=== PATIENT | female | born 1940 | race Caucasian/White ===

== ENCOUNTER 2017-12-25 19:12 | Observation (INO) | payer OTHER ==
[~2017-12-25] VITALS: Ht 154.9 cm; Wt 72.6 kg
--- NOTE | ~2017-12-25 | 2DMMODE ---
[facility] [place] [address] 2 D/M-MODE ECHOCARDIOGRAM Name: LAKESILVIONATHALIE Albert Room #: 215-P [facility]#: [id number] Admission: 12/25/17 Attend Phys: Jamey Templeton MD Discharge: Date of : 36 Date of Service: 12/26/17 1606 Report #: [id number] THIS REPORT FOR: //name// APPROVED REPORT Study performed: 12/26/2017 12:15:55 EXAM: Comprehensive 2D, Doppler, and color-flow Echocardiogram Patient Location: In-Patient Room #: 215 Status: routine BSA: 1.72 HR: 60 bpm BP: 148/69 mmHg Other Information Study Quality: Adequate Indications CVA/TIA Hypertension/HDD Echo Enhancing Agent Indication: Rule out Shunt Agent(s) / Amount(s) Used: Agitated Saline 6 cc 2D Dimensions RVDd: 28.58 mm IVSd: 12.19 (7-11mm) LVOT Diam: 18.86 (18-24mm) LVDd: 39.69 mm PWd: 10.52 (7-11mm) Ascending Ao: 30.05 (22-36mm) LVDs: 26.13 (25-40mm) Aortic Root: 32.75 mm IVC: 14.00 mm Volumes Left Atrial Volume (Systole) Single Plane 4CH: 26.21 mL Single Plane 2CH: 27.95 mL LA ESV Index: 17.00 mL/m2 Aortic Valve AoV Peak Adan.: 1.20 m/s AO Peak Gr.: 5.71 mmHg LVOT Max P.45 mmHg LVOT Max V: 0.93 m/s MARGARITA Vmax: 2.17 cm2 [facility] [place] [address] [place] [address] 2 D/M-MODE ECHOCARDIOGRAM Name: LAUREN BETHEA Roosevelt Room #: 215-P [facility].#: [id number] Admission: 12/25/17 Attend Phys: Jamey Templeton MD Discharge: Date of : 36 Date of Service: 12/26/17 1606 Report #: [id number] Mitral Valve E/A Ratio: 0.6 MV Decel. Time: 253.73 ms MV E Max Adan.: 0.66 m/s MV A Adan.: 1.05 m/s MV PHT: 73.58 ms IVRT: 128.03 ms Pulmonary Valve PV Peak Adan.: 0.66 m/s PV Peak Gr.: 1.75 mmHg Pulmonary Vein P Vein S: 0.67 m/s P Vein A: 0.26 m/s P Vein D: 0.45 m/s P Vein A Dur.: 110.7 msec P Vein S/D Ratio: 1.49 Tricuspid Valve TR Peak Adan.: 3.22 m/s RAP Estimate: 5.00 mmHg TR Peak Gr.: 41.47 mmHg PA Pressure: 46.00 mmHg Left Ventricle The left ventricle is normal size. There is normal left ventricular wall thickness. The left ventricular systolic function is normal. The left ventricular ejection fraction is within the normal range. LVEF is 60-65%. Mild diastolic dysfunction is present (impaired relaxation pattern). Right Ventricle The right ventricle is normal size. The right ventricular systolic function is normal. Atria The left atrium size is normal. No shunting by contrast bubble injection. The right atrium size is normal. Aortic Valve The aortic valve is normal in structure. No aortic regurgitation is present. There is no aortic valvular stenosis. Mitral Valve The mitral valve is normal in structure. Trace mitral regurgitation. No evidence of mitral valve stenosis. Tricuspid Valve The tricuspid valve is normal in structure. Trace to mild tricuspid [facility] [address] [place] [address] 2 D/M-MODE ECHOCARDIOGRAM Name: LAUREN BETHEA Room #: 215-P [facility]#: [id number] Admission: 12/25/17 Attend Phys: Jamey Templeton MD Discharge: Date of : 36 Date of Service: 12/26/17 1606 Report #: [id number] regurgitation. PAP is estimated at 46 mmHg. Pulmonic Valve The pulmonary valve is normal in structure. Mild pulmonic regurgitation. Great Vessels The aortic root is normal in size. IVC is normal in size and collapses >50% with inspiration. Pericardium There is no pericardial effusion. <Conclusion> The left ventricle is normal size. LVEF is 60-65%. Mild diastolic dysfunction is present (impaired relaxation pattern). The right ventricle is normal size. The left atrium size is normal. The aortic valve is normal in structure. Trace mitral regurgitation. Trace to mild tricuspid regurgitation. PAP is estimated at 46 mmHg. Mild pulmonic regurgitation. The aortic root is normal in size. There is no pericardial effusion. <ELECTRONICALLY SIGNED> By: Tate Sahni MD, FACC 12/26/17 1606 1606 1606 Tate Sahni MD, FACC /INF
--- NOTE | ~2017-12-25 | HC ---
[facility] [place] [address] CONSULTATION Name: LAUREN BETHEA Room #: 215-P [facility] Judith Strange#: [id number] Admission: 12/25/17 Attend Phys: Jamey Templeton MD Discharge: 12/26/17 Date of : 36 Report #: [id number] THIS REPORT FOR: //name// CC: Berenice Templeton NO PCP Lobo Weldon DATE OF SERVICE: 12/26/2017 HISTORY OF PRESENT ILLNESS: The patient is a 77-year-old woman who was admitted to the hospital on 12/25/2017. The patient had a chief complaint of left arm, left face and left tongue tingling, which had begun abruptly. The patient states that she had finished eating and she noticed tingling with paroxysmal, electric-like pain intermittently on the left side. She has no history of trigeminal neuralgia. She noticed no shortness of breath or sweating. No nausea or vomiting. The symptoms did tend to get better, but she is still having some burning pain in her left foot, which was not involved with the paroxysmal electric-like pain elsewhere. The patient is feeling well now. She underwent imaging, and the MRI of the head reportedly showed a small linear focus of increased diffusion signal in the right mid to inferior cerebellar hemisphere consistent with "small acute infarct." MRA was unremarkable. Head CT scan without contrast showed a possible chronic lacunar infarct within the right basal ganglia, which was not seen on MRI. Chest x-ray was unremarkable. The patient is feeling well now. PAST MEDICAL HISTORY: Positive for type 2 diabetes, hypertension, hyperlipidemia, hypothyroidism, GERD, osteoarthritis, diverticulosis and appendectomy. HOME MEDICATIONS: Include simvastatin, Symbicort, Diovan HCT, levothyroxine 50 mcg, trazodone 50 mg nightly, metformin and vitamin supplements. ALLERGIES: No known drug allergies. FAMILY HISTORY: Positive for heart disease and stroke. SOCIAL HISTORY: She has never smoked, and drinks wine occasionally. REVIEW OF SYSTEMS: The patient denies systemic complaints of fever, rash or chills. The patient had headaches in the past, but has not had for years. She has not had any neck pain or problems with shooting pains into her arms or legs of a radicular nature. The 10-point review of systems is otherwise [address] [address] CONSULTATION Name: LAUREN BETHEA Room #: 215-[facility] Judith Strange#: [id number] Admission: 12/25/17 Attend Phys: Jamey Templeton MD Discharge: 12/26/17 Date of : 36 Report #: [id number] unremarkable. PHYSICAL EXAMINATION: VITAL SIGNS: Blood pressure 153/75, pulse 61, temperature 36.9. GENERAL APPEARANCE: The patient is an older woman who appears her stated age and is in no apparent distress and is very pleasant. NECK: Supple. EXTREMITIES: No pedal edema was noted. NEUROLOGIC: She is alert and oriented with normal memory and speech. Cranial nerve testing reveals small, but equal pupils. Extraocular movements were full. Visual pal were full to confrontation. Facial sensation and facial mobility were normal. Hearing was intact bilaterally. Tongue was normal. Motor testing revealed full power in her arms and legs. There was no drift or involuntary movements. Sensation testing was intact to pin and vibration sense throughout. Coordination testing was done well with [id number], [id number] and rapid alternating movements. Reflexes were 2+ and equal from side to side. Gait was not tested. LABORATORY STUDIES: Showed an elevated white count of 14,600, the sed rate was 5. Chemistry showed a glucose of 97, triglycerides 157, total cholesterol 175, HDL 66, LDL 78. Magnesium was 1.7. Liver function tests were normal. TSH was 0.730, free T4 at 1.1. IMPRESSION: The patient's symptoms suggest a paroxysmal neuralgia with electric-like pain occurring superimposed on symptoms of paresthesias like numbness and tingling. This has resolved. This paroxysmal neuralgia, when it occurs in the trigeminal distribution, is treated with Tegretol; however, diabetes can present with this kind of paroxysmal pain, which may not recur or, which recur so rarely that it would not be recommended that she take Tegretol on a continuous basis. I have requested a B12 level. Her white count was elevated, but this could be due to the steroid effect, which she had been taking recently. Paroxysmal shooting pains can rarely be seen in neurosyphilis. She has no history of sexually transmitted diseases, but an RPR will be ordered, to cover the water form. I disagree with the impression of a stroke. It does not fit clinically at all and I believe the imaging is most likely an artifact. <ELECTRONICALLY SIGNED> By: Jay Colon MD 12/29/17 1526 1533 00 Jay Colon MD /nt
--- NOTE | ~2017-12-25 | H ---
[facility] [place] [address] HISTORY AND PHYSICAL Name: LAUREN BETHEA Room #: 215-P [facility] M.R.#: [id number] Admission: 12/25/17 Attend Phys: Jamey Templeton MD Discharge: Date of : 38 Report #: [id number] THIS REPORT FOR: //name// CC: Tate Sahni MD [facility] Berenice Templeton NO PCP Lobo Weldon DATE OF SERVICE: 12/25/2017 CHIEF COMPLAINT: Left-sided numbness and tingling. HISTORY OF PRESENT ILLNESS: The patient is a 77-year-old [place]ian female who had dinner last evening and felt fairly normal and about an hour later while seated and watching television with her , began complaining of having strange feelings involving her eyesight and tingling from her chest going down her left arm and then further extending to her left face and her left lower extremity. No shortness of breath, no diaphoresis, no nausea or vomiting. The symptoms lasted less than 45 minutes and were over shortly after she arrived at the Emergency Room and have not recurred overnight during her hospital stay thus far. She feels normal this morning. I interviewed her and her at length. He drove her to the Emergency Room where she had the initial workup and she was admitted for further evaluation and treatment. PAST MEDICAL HISTORY: Includes type 2 diabetes, hypertension, hyperlipidemia, hypothyroidism, gastroesophageal reflux disease, osteoarthritis in the hands, diverticulosis, and appendectomy. She was just finishing a course of antibiotics and steroids and oral inhaler for treatment of acute bronchitis that she developed during a recent trip to the [facility]. HOME MEDICATIONS: List includes simvastatin 40 mg by mouth daily, calcium carbonate with vitamin D3 three tablets by mouth every day at lunch, vitamin D3 1000 units by mouth daily, Symbicort 160/4.5 two puffs per inhaler twice daily, Diovan HCT 320/25 one tab by mouth every morning, levothyroxine 50 mcg by mouth daily, trazodone 50 mg by mouth nightly, metformin 500 mg by mouth twice daily with meals and a multivitamin with iron and minerals daily. ALLERGIES: She has no known drug allergies. FAMILY HISTORY: Her mother had myocardial infarction and her father had a stroke during their lives. There is also significant history of anxiety in her father and in an aunt. SOCIAL HISTORY: The patient is to Dr. Kamilla Bethea. She is a lifelong nonsmoker and has no vices. She has 3 grown children and 2 [address] [address] HISTORY AND PHYSICAL Name: SILVIO BETHEANATHALIE Roosevelt Room #: 215-[facility]#: [id number] Admission: 12/25/17 Attend Phys: Jamey Templeton MD Discharge: Date of : 38 Report #: [id number] REVIEW OF SYSTEMS: There is no headache. There is no vertigo. There is no change in hearing. No changes in sense of smell or taste. There is no difficulty with swallowing. There are no falls or trauma. There are no new joint aches or pains, although she does get intermittent cramping in her distal extremities recently. No chest pain or shortness of breath. No abdominal pain or change in bowel or bladder habits. When her symptoms started last night, she felt unusual all over, but particularly on the left side. After the episode completed, it has not recurred. PHYSICAL EXAMINATION: VITAL SIGNS: In the Emergency Room showed a temperature of 36.9 degrees centigrade, pulse of 80, respirations of 20, blood pressure 157/67 with a pulse oximetry of 95%, weight in the Emergency Room was 160 pounds. GENERAL: The patient is a very well-developed, well-nourished, older [place]ian female, in no immediate distress. HEENT: The extraocular muscles are intact. Oropharynx is moist and pink. No lesions, no exudate. NECK: Supple. There is no adenopathy or thyromegaly or mass or significant bruit. LUNGS: Clear bilaterally. CARDIOVASCULAR: Reveals a regular rhythm with S3 and S4 gallop noted. No murmur or rub. ABDOMEN: Soft. Bowel sounds are present, no visceromegaly or masses. EXTREMITIES: Without cyanosis or clubbing or peripheral edema. Her toenails are painted orange. She has easily palpated peripheral pulses in both upper and both lower extremities. Overt degenerative changes are seen in the hands. NEUROLOGIC: MENTAL STATUS: The patient is alert. She is fully oriented, no hallucinations or delusions. She is exceedingly anxious and obsessive about cleanliness. Her short and long-term memory appear to be grossly normal. Cranial nerves 2-12 appear to be intact. Cranial cerebellar exam, There is no balance issues or Romberg sign. The patient lacks any sensory or motor deficits at this time. Her speech is fluent and content is normal. She understands questions to her and has appropriate responses to them. LABORATORY DATA: In the Emergency Room, CBC showed a white blood cell count of 14,600 with a differential of 63.4% segmented neutrophils, 25.8% lymphocytes, 6.4% monocytes, 3.7% eosinophils, and 0.7% basophils, the absolute neutrophil count was 9200, hemoglobin was 14.1 with hematocrit of 40.8. The red cell indices were entirely normal and the platelet count was 389,000. The comprehensive metabolic panel showed sodium 138, potassium 3.6, chloride 101, bicarbonate of 33, BUN of 19, creatinine 1.2. The anion gap is 4. The AST is 22, the ALT is 27, all normal. Total bilirubin is 0.3, the alkaline phosphatase 101, both normal. Calcium was 9.7. Total protein was 7.5 with albumin 3.8, also normal. The estimated glomerular filtration rate was 43. The troponin was less than 0.06. The NT-proBNP was 111 and normal. The protime and PTT were 9.7 [facility] [place] [address] HISTORY AND PHYSICAL Name: LAUREN BETHEA Room #: 215-P [facility] M..#: [id number] Admission: 12/25/17 Attend Phys: Jamey Templeton MD Discharge: Date of : 38 Report #: [id number] and 25.4 and normal, both of them. The patient had a magnesium level in the Emergency Room, it was 1.7 and slightly below the lower limits of normal. Urinalysis was performed and this revealed clear yellow urine with specific gravity of 1.010, pH of 8.0. It was negative for protein, glucose, ketones, bilirubin, blood, nitrites and leukocytes. Electrocardiogram showed a sinus rhythm with a rate of 82 beats per minute, low voltage was noted in the precordial leads, probable left ventricular hypertrophy per the report with anterior Q-waves possibly due to LVH. There was specifically delayed R-wave progression, which was present, albeit to a lesser degree on her last EKG here several years ago. The patient had a portable chest x-ray, which was fairly normal and showed no acute cardiopulmonary disease. Lipid profile done the following morning showed a total cholesterol of 175, triglycerides of 157, HDL of 66, LDL of 78. Radiography showed that CT of the head without contrast, had no acute intracranial process, although age-related atrophy and a tiny chronic lacunar infarct within the right basal ganglia were noted. The following morning, she underwent MRI of the brain and MRI of the [place] and carotids. The reports are not complete, but showed that the patient had a right cerebellar ischemic infarct with a very small distribution and no other significant vascular issues throughout. In particular, no tumors or abscesses or other significant abnormalities were noted. The final report of all these studies is not yet available on the computer. I did discuss the case with the radiologist on-call. ASSESSMENT AND PLAN: 1. Right cerebellar ischemic stroke -- the clinical appearance is for a transient ischemic attack. I do not see any focal deficits on my exam today. I will get physical therapy and occupational therapy to evaluate her for any continuing therapy needs she might have. Not included in the workup thus far is an assessment for significant cardiac arrhythmia, such as atrial fibrillation or sick sinus syndrome. She is currently on telemetry and has had no significant dangerous arrhythmias to my knowledge. The echocardiogram has been ordered and will be done today. I did discuss the case with Dr. Tate Sahni, placed an order for Cardiology to see the patient in the event of significant abnormality that needs to be followed. I will have her see her sausage maker as an outpatient. 2. Hypertension. We will start the patient on propranolol because of the multiple positive benefits that can be seen with this drug including for her blood pressure, for her heart rate control, for her thyroid and even possibly for her anxiety. I have ordered Inderal LA 80 mg by mouth daily. 3. Type 2 diabetes. We will resume the metformin 500 mg twice daily and monitor her blood sugars 3 times a day. 4. Hypothyroidism - We will check a TSH and a free T4 while she is here and adjust treatment if necessary. There is a significant relation between thyroid [facility] [address] [place] [address] HISTORY AND PHYSICAL Name: LAUREN BETHEA Room #: 215-P [facility] Judith Strange#: [id number] Admission: 12/25/17 Attend Phys: Jamey Templeton MD Discharge: Date of : 38 Report #: [id number] disease, hypertension and the risk of developing atrial fibrillation. 5. Osteoarthritis, multiple sites -- I would prefer to limit her use of arthritic medications to Tylenol at this time. Nonsteroidal anti-inflammatories may increase her stroke risk. 6. Chronic anxiety -- She certainly has some marked obsessive compulsive tendencies and I think that the choice of Inderal for her antihypertensive and anti-tachyarrhythmic problems would be most appropriate at this time. The patient is a very intelligent lady and is very attuned to staying away from medications that might impair or inhibit her mental function. I further recommended the patient that good exercise program, once she has stabilized, would be helpful in maintaining her mood and her anxiety and her blood pressure and her heart rate and rhythm. I suggested a membership with a program at a local gymnasium or health Club. <ELECTRONICALLY SIGNED> By: Jamey Templeton MD 12/26/17 1245 1130 1223 Jamey Templeton MD /nt
--- NOTE | ~2017-12-25 | EKG ---
[address] [place] [address] ELECTROCARDIOGRAM REPORT Name: LAUREN BETHEA [id number] Admission: 12/25/17 Attend Phys: Jamey Templeton MD Discharge: 12/26/17 Date of : 38 Report #: [id number] THIS REPORT FOR: //name// [facility] ED Test Date: 2017-12-25 Test Time: 19:15:12 Pat Name: LAUREN BETHEA Department: Room: [facility] Gender: F Personal Companion: SUSAN : 1940 Requested By: Ben Barker Order Number: [id number] MD: Tyrell Aguilera Measurements Intervals [place] Rate: 82 P: 82 DE: 148 QRS: -36 QRSD: 92 T: 13 QT: 386 QTc: 451 Interpretive Statements Sinus rhythm Low voltage, precordial leads Probable left ventricular hypertrophy Anterior Q waves, possibly due to LVH Compared to ECG 05/04/1997 12:36:00 Low QRS voltage now present Poor R-wave progression no longer present T-wave abnormality no longer present Inferior Q waves no longer present Electronically Signed On 12-26-2017 17:41:12 CDT by Tyrell Aguilera [email or web address] <ELECTRONICALLY SIGNED> By: Tyrell Aguilera MD 12/26/17 1741 14 14 Tyrell Aguilera MD /EPI
[~2017-12-25 19:12] MED LIST: CALCIUM 500 +1 EAC5 PO; CIPRO500 MG PO; DIOVAN HCT 3201 EAC1 PO; FLAGYL500 MG PO; GLUCOPHAGE1000 MG PO; SYMBICORT160 MCG/4. INH; SYNTHROID75 MCG PO; VITAMIN D1000 UNI1 PO; ZOCOR40 MG PO
[2017-12-25 19:13] VITALS: BP 157/6; BP 157/67
[2017-12-25] MEDS ORDERED: LEVOXYL50 MCG PO (19:17)
[2017-12-25] MEDS ORDERED: UNICOMPLEX M TA1 TA1 PO (19:19)
[2017-12-25] MEDS ORDERED: METFORMIN HCL500 MG PO (19:19)
[2017-12-25] MEDS ORDERED: TRAZODONE HCL50 MG PO (19:19)
[2017-12-25 19:32] LABS: ABSOLUTE NEUTROPHILS 9.2 thou/uL (1.4-8.2); BASOPHILS 0.7 % (0.0-2.0); EOSINOPHILS 3.7 % (0.0-3.0); HEMATOCRIT 40.8 % (37.0-47.0); HEMOGLOBIN 14.1 gm/dL (12.0-15.0); LYMPHOCYTES 25.8 % (24.0-44.0); MCH 30.4 pg (26.0-34.0); MCHC 34.7 g/dL (28.0-37.0); MCV 87.7 fL (80.0-100.0); MONOCYTES 6.4 % (1.0-8.0); PLATELET COUNT 389 thou/uL (150-400); POLYS 63.4 % (36.0-66.0); RBC 4.65 mil/uL (4.20-5.00); RDW 13.1 % (10.5-14.5); WBC 14.6 thou/uL (4.0-11.0)
[2017-12-25 19:39] LABS: ANION GAP 4 mmol/L (7-16); BUN 19 mg/dL (7-18); CALCIUM 9.7 mg/dL (8.5-10.1); CHLORIDE 101 mmol/L (98-107); CO2 33 mmol/L (21-32); CREATININE 1.2 mg/dL (0.6-1.0); GLUCOSE 104 mg/dL (74-106); POTASSIUM 3.6 mmol/L (3.5-5.1); SODIUM 138 mmol/L (136-145)
[2017-12-25 19:48] LABS: ALBUMIN 3.8 g/dL (3.4-5.0); SGOT 22 U/L (15-37); SGPT 27 U/L (30-65); TOTAL BILIRUBIN 0.3 mg/dL (<0.1-1.0); TOTAL PROTEIN 7.5 g/dL (6.4-8.2); TROPONIN-I <0.06 ng/mL (<0.06)
[2017-12-25 20:05] LABS: URINE BILIRUBIN NEGATIVE (Negative); URINE BLOOD NEGATIVE (Negative); URINE CLARITY CLEAR; URINE COLOR YELLOW; URINE GLUCOSE-RANDOM* NEGATIVE (Negative); URINE KETONES NEGATIVE (Negative); URINE LEUKOCYTES-REFLEX NEGATIVE (Negative); URINE NITRITE-REFLEX NEGATIVE (Negative); URINE PROTEIN (DIPSTICK) NEGATIVE (Negative); URINE UROBILINOGEN 0.2 E.U./dl (0.2-1.0)
[2017-12-25 20:21] LABS: APTT 25.4 Seconds (24.5-32.8); PROTIME 9.7 Seconds (9.3-11.4)
[2017-12-25 21:44] VITALS: BP 173/77
[2017-12-25 22:35] VITALS: BP 149/85
[2017-12-26 00:07] VITALS: BP 154/72
[2017-12-26 07:02] VITALS: BP 148/69
[2017-12-26 11:10] LABS: CHOLESTEROL 175 mg/dL (<200); HDL CHOLESTEROL 66 mg/dL (>40); LDL CHOLESTEROL 78 mg/dL (<100); TC:HDL 2.7 Ratio (Not establshd); TRIGLYCERIDE 157 mg/dL (<150); VLDL 31 mg/dL (<40)
[2017-12-26 11:11] VITALS: BP 149/74
[2017-12-26] MEDS ORDERED: CLOPIDOGREL75 MG PO (12:27)
[2017-12-26] MEDS ORDERED: ADULT LOW DOSE81 MG PO (12:28)
[2017-12-26] MEDS ORDERED: Fish Oil PO (12:28)
[2017-12-26] MEDS ORDERED: INDERAL 80 MG PO (12:28)
[2017-12-26] MEDS ORDERED: TRAZODONE HCL50 MG PO (12:29)
[2017-12-26] MEDS ORDERED: [UNRECOGNIZED DRUG - OTHER] PO (12:29)
[2017-12-26] MEDS ORDERED: CALTRATE PO (12:29)
[2017-12-26] MEDS ORDERED: MAGNESIUM400 MG PO (12:30)
[2017-12-26] MEDS ORDERED: VITAMIN D 1000 UNIT PO (12:32)
[2017-12-26] MEDS ORDERED: SYNTHROID 25 MCG PO (12:32)
[2017-12-26] MEDS ORDERED: Unicomplex M Tablet PO (12:32)
[2017-12-26] MEDS ORDERED: METFORMIN 500 MG PO (12:32)
[2017-12-26 15:23] VITALS: BP 153/75
[2017-12-26 17:09] VITALS: BP 153/75
== END 2017-12-26 17:15 | disposition home or self-care (01) ==
LOC: ER 19:12 → 2N 20:34 → EROBS 20:34 → 2N 20:34 → ENTRNSPT 12-26 17:12 → 2N 12-26 17:15
PROVIDERS: Emergency Medicine; Internal Medicine
DX: I63.541 Cerebral infarction due to unspecified occlusion or stenosis of right cerebellar artery (principal); I10 Essential (primary) hypertension; E78.5 Hyperlipidemia, unspecified; E03.9 Hypothyroidism, unspecified; K21.9 Gastro-esophageal reflux disease without esophagitis; E11.40 Type 2 diabetes mellitus with diabetic neuropathy, unspecified; F41.9 Anxiety disorder, unspecified; M19.90 Unspecified osteoarthritis, unspecified site; Z90.49 Acquired absence of other specified parts of digestive tract

== ENCOUNTER → 2019-06-06 | Outpatient (CLI) | payer MEDICARE ==
[~2019-06-06] MED LIST changes: +ADULT LOW DOSE81 MG PO; +CALTRATE PO; +CLOPIDOGREL75 MG PO; +Fish Oil PO; +INDERAL 80 MG PO; +LEVOXYL50 MCG PO; +MAGNESIUM400 MG PO; +METFORMIN 500 MG PO; +METFORMIN HCL500 MG PO; +SYNTHROID 25 MCG PO; +TRAZODONE HCL50 MG PO; +UNICOMPLEX M TA1 TA1 PO; +Unicomplex M Tablet PO; +VITAMIN D 1000 UNIT PO; +[UNRECOGNIZED DRUG - OTHER] PO
== END ==
LOC: SJCVC 13:22
DX: I45.10 Unspecified right bundle-branch block (principal); R94.31 Abnormal electrocardiogram [ECG] [EKG]; I10 Essential (primary) hypertension; E78.5 Hyperlipidemia, unspecified; G45.9 Transient cerebral ischemic attack, unspecified; E03.9 Hypothyroidism, unspecified; Z90.49 Acquired absence of other specified parts of digestive tract; Z79.899 Other long term (current) drug therapy; Z82.49 Family history of ischemic heart disease and other diseases of the circulatory system

== ENCOUNTER → 2020-07-02 | Outpatient (CLI) | payer OTHER | LOC: SJCVCIMAG 10:13 | PROVIDERS: ATTEND Internal Medicine Cardiovascular Disease | DX: R94.31 Abnormal electrocardiogram [ECG] [EKG] (principal); I45.10 Unspecified right bundle-branch block; I11.0 Hypertensive heart disease with heart failure; E78.5 Hyperlipidemia, unspecified; E03.9 Hypothyroidism, unspecified; K21.9 Gastro-esophageal reflux disease without esophagitis; Z72.89 Other problems related to lifestyle; Z79.899 Other long term (current) drug therapy; Z79.82 Long term (current) use of aspirin; Z82.49 Family history of ischemic heart disease and other diseases of the circulatory system; Z86.73 Personal history of transient ischemic attack (TIA), and cerebral infarction without residual deficits ==

== ENCOUNTER → 2020-08-19 | Outpatient (CLI) | payer OTHER | LOC: SJCVCIMAG 07:20 | PROVIDERS: ATTEND Internal Medicine Cardiovascular Disease | DX: R00.0 Tachycardia, unspecified (principal); I25.10 Atherosclerotic heart disease of native coronary artery without angina pectoris; R06.00 Dyspnea, unspecified; R42 Dizziness and giddiness; E78.5 Hyperlipidemia, unspecified; Z82.49 Family history of ischemic heart disease and other diseases of the circulatory system ==

== ENCOUNTER → 2021-02-16 | Outpatient (CLI) | payer OTHER | LOC: SJCVCIMAG 14:33 → SJCVC 14:33 | PROVIDERS: ATTEND Internal Medicine Cardiovascular Disease | DX: E04.2 Nontoxic multinodular goiter (principal); R94.31 Abnormal electrocardiogram [ECG] [EKG]; R13.0 Aphagia; I10 Essential (primary) hypertension; E78.5 Hyperlipidemia, unspecified; E03.9 Hypothyroidism, unspecified; K57.90 Diverticulosis of intestine, part unspecified, without perforation or abscess without bleeding; Z79.899 Other long term (current) drug therapy; Z72.89 Other problems related to lifestyle; Z82.49 Family history of ischemic heart disease and other diseases of the circulatory system ==